=== PATIENT | female | born 1980 | race Caucasian/White ===

== ENCOUNTER 2017-06-25 21:04 | Emergency (ER) | payer BC ==
[~2017-06-25] VITALS: Ht 149.8 cm; Wt 79.4 kg
--- NOTE | ~2017-06-25 | EKG ---
[place], [place] ELECTROCARDIOGRAM REPORT NAME: TOSHA WRIGHT UNIT #: [id number] ROOM: DOCTOR: LEOLA KNIGHT MD BIRTHDATE: [birth year] DOS: 06/25/2017 TIME: 2203 hours. Normal sinus rhythm at 88 beats per minute. The tracing is normal. When compared with an ECG done about an hour earlier, heart rate has decreased significantly. LEOLA KNIGHT MD CM:EKGRPT:ELECTROCARDIOGRAM REPORT [id number] LEOLA KNIGHT MD
--- NOTE | ~2017-06-25 | EKG ---
[place], [place] ELECTROCARDIOGRAM REPORT NAME: TOSHA WRIGHT UNIT #: [id number] ROOM: DOCTOR: LEOLA KNIGHT MD BIRTHDATE: [birth year] DOS: 06/25/2017 TIME: 2302 hours. Normal sinus rhythm at 85 beats per minute. The tracing is normal. No previous tracing is available for comparison. LEOLA KNIGHT MD CM:EKGRPT:ELECTROCARDIOGRAM REPORT [phone] LEOLA KNIGHT MD
--- NOTE | ~2017-06-25 | EKG ---
[place], [place] ELECTROCARDIOGRAM REPORT NAME: TOSHA WRIGHT UNIT #: [id number] ROOM: DOCTOR: LEOLA KNIGHT MD BIRTHDATE: [birth year] DOS: 06/25/2017 TIME: 2115 hours. Sinus tachycardia at 114 beats per minute. The tracing is otherwise normal. No previous tracing is available for comparison. LEOLA KNIGHT MD CM:EKGRPT:ELECTROCARDIOGRAM REPORT 1145 [id number] LEOLA KNIGHT MD
[~2017-06-25 21:04] MED LIST: AMOXICILLIN500 MG PO; DIFLUCAN150 MG PO
[2017-06-25] MEDS ORDERED: LISINOPRIL5 MG PO (21:17)
[2017-06-25 21:28] LABS: BASO % 0.3 % (0.0-1.0); EOS # 0.1 10*3/uL (0.0-0.4); HEMATOCRIT 37.3 % (37.0-47.0); HEMOGLOBIN 11.3 g/dl (12.0-16.0); LYMPH # 2.6 10*3/uL (1.3-4.4); MEAN CELL VOLUME 76.7 fl (81.0-99.0); MEAN CORPUSCULAR HGB 23.3 pg (27.0-31.0); MEAN CORPUSCULAR HGB CONC 30.3 g/dl (33.0-37.0); MEAN PLATELET VOLUME 9.8 fl (9.6-12.3); MONO # 0.7 10*3/uL (0.1-1.0); MONO % 7.2 % (3.0-9.0); NEUT # 5.8 10*3/uL (2.3-7.9); NEUT % 63.2 % (47.0-73.0); PLATELET COUNT AUTOMATED 343 10*3/uL (130-400); RED BLOOD COUNT 4.86 10*6/uL (4.10-5.10); RED CELL DISTRI WIDTH 15.4 % (0-14.5); WHITE BLOOD COUNT 9.2 10*3/uL (4.8-10.8)
[2017-06-25 21:36] LABS: BILIRUBIN NEGATIVE (NEGATIVE); BLOOD NEGATIVE (NEGATIVE); CLARITY CLEAR (CLEAR); COLOR YELLOW (YELLOW); GLUCOSE NEGATIVE (NEGATIVE); KETONE NEGATIVE (NEGATIVE); LEUKO ESTERASE NEGATIVE (NEGATIVE); NITRITE NEGATIVE (NEGATIVE); SPECIFIC GRAVITY <= 1.005 (1.005-1.030); UROBILINOGEN 0.2 E.U./dl (0.2-1.0)
[2017-06-25 21:45] LABS: ALBUMIN 3.9 gm/dl (3.1-4.5); ALKALINE PHOSPHATASE 89 U/L (45-117); BUN 8 mg/dl (7-24); CHLORIDE 104 mmol/L (98-107); CREATININE 0.86 mg/dL (0.55-1.02); MAGNESIUM 2.2 mg/dL (1.5-2.1); POTASSIUM 3.8 mmol/L (3.5-5.1); SGOT/AST 18 IU/L (3-35); SGPT/ALT 34 U/L (12-78); SODIUM 140 mmol/L (136-145); TOTAL PROTEIN 7.8 gm/dL (6.4-8.2)
[2017-06-25 21:47] LABS: ACT PARTIAL THROMBO TIME 20.9 SECONDS (20.8-31.5)
[2017-06-25 21:48] LABS: TROPONIN I < 0.015 ng/ml (<0.045)
[2017-06-25 21:54] LABS: BACTERIA TRACE; RBC 0-2 rbc/hpf (0-2); WBC 0-2 wbc/hpf (0-5)
== END 2017-06-25 23:34 | disposition home or self-care (01) ==
LOC: ED 21:04
PROVIDERS: Emergency Medicine Emergency Medical Services
DX: R07.89 Other chest pain (principal); R73.9 Hyperglycemia, unspecified; Z98.890 Other specified postprocedural states; Z79.899 Other long term (current) drug therapy

== ENCOUNTER 2017-08-06 18:57 | Emergency (ER) | payer BC ==
[~2017-08-06] VITALS: Ht 149.8 cm; Wt 77.1 kg
--- NOTE | ~2017-08-06 | EKG ---
[place], [place] ELECTROCARDIOGRAM REPORT NAME: OTSHA WRIGHT UNIT #: [id number] ROOM: DOCTOR: ALEJANDRO MCDONOUGH,LUCIANO BIRTHDATE: [birth year] DOS: 08/06/2017 TIME: 2028 hours. IMPRESSION: 1. Sinus rhythm. 2. Normal QT interval. 3. No ischemic changes. LUCIANO ALLEN MD CM:EKGRPT:ELECTROCARDIOGRAM REPORT [id number] LUCIANO ALLEN MD
[~2017-08-06 18:57] MED LIST changes: +LISINOPRIL5 MG PO
[2017-08-06 20:15] LABS: BASO % 0.4 % (0.0-1.0); EOS # 0.1 10*3/uL (0.0-0.4); HEMOGLOBIN 11.3 g/dl (12.0-16.0); LYMPH # 2.6 10*3/uL (1.3-4.4); LYMPH % 24.9 % (27.0-41.0); MEAN CELL VOLUME 75.5 fl (81.0-99.0); MEAN CORPUSCULAR HGB 23.7 pg (27.0-31.0); MEAN CORPUSCULAR HGB CONC 31.4 g/dl (33.0-37.0); MEAN PLATELET VOLUME 9.9 fl (9.6-12.3); MONO # 0.6 10*3/uL (0.1-1.0); MONO % 6.1 % (3.0-9.0); NEUT # 6.9 10*3/uL (2.3-7.9); NEUT % 67.2 % (47.0-73.0); PLATELET COUNT AUTOMATED 334 10*3/uL (130-400); RED BLOOD COUNT 4.77 10*6/uL (4.10-5.10); RED CELL DISTRI WIDTH 15.6 % (0-14.5); WHITE BLOOD COUNT 10.3 10*3/uL (4.8-10.8)
[2017-08-06 20:30] LABS: ALBUMIN 3.5 gm/dl (3.1-4.5); ALKALINE PHOSPHATASE 88 U/L (45-117); BUN 8 mg/dl (7-24); CHLORIDE 106 mmol/L (98-107); CREATININE 0.78 mg/dL (0.55-1.02); LIPASE 357 U/L (73-393); POTASSIUM 3.9 mmol/L (3.5-5.1); SGOT/AST 13 IU/L (3-35); SGPT/ALT 19 U/L (12-78); SODIUM 139 mmol/L (136-145); TOTAL PROTEIN 7.7 gm/dL (6.4-8.2)
[2017-08-06 20:31] LABS: TROPONIN I < 0.015 ng/ml (<0.045)
[2017-08-06] MEDS ORDERED: AUGMENTIN 875875 MG PO (21:27)
[2017-08-09] MEDS ORDERED: METFORMIN ER500 MG PO (08:42)
[2017-08-09] MEDS ORDERED: VENLAFAXINE75 M1 PO (08:43)
[2017-08-09] MEDS ORDERED: Lopressor25 MG PO (08:43)
== END 2017-08-06 21:38 | disposition home or self-care (01) ==
LOC: ED 18:57
PROVIDERS: Nurse Practitioner Family
DX: H65.93 Unspecified nonsuppurative otitis media, bilateral (principal); R73.9 Hyperglycemia, unspecified; Z79.899 Other long term (current) drug therapy

== ENCOUNTER → 2017-08-09 | Outpatient (CLI) | payer BC ==
[~2017-08-09] MED LIST changes: +AUGMENTIN 875875 MG PO; +Lopressor25 MG PO; +METFORMIN ER500 MG PO; +VENLAFAXINE75 M1 PO
--- NOTE | ~2017-08-09 | ST ---
[place], [place] EXERCISE STRESS TEST REPORT NAME: TOSHA WRIGHT [facility] #: [id number] UNIT #: [id number] ROOM: DOCTOR: CHARLI RICHEY MD BIRTHDATE: [birth year] DOS: 08/09/2017 INDICATION: Chest pain. PROCEDURE: The patient was exercised on a treadmill using Jarrell protocol. The patient exercised for 8 minutes reaching 90% of her maximum predicted heart rate. Test was terminated due to achieving target heart rate and fatigue. No complaint of chest pain, chest pressure, heaviness or tightness. BLOOD PRESSURE RESPONSE: The resting blood pressure 122/82 with ending blood pressure 170/84. ELECTROCARDIOGRAM INTERPRETATION: The resting electrocardiogram showing normal sinus rhythm with poor R progression. At the peak of exercise, there was no evidence of any significant ST or T-wave changes suggestive of myocardial ischemia. No arrhythmias were noted. SUMMARY: 1. Adequate stress test with good functional capacity. 2. Negative treadmill stress test for stress-induced myocardial ischemia. 3. No arrhythmias were noted. 4. Normal blood pressure at rest with normal blood pressure response to exercise. 5. No nuclear images were requested. CHARLI RICHEY MD CM:STRESS:EXERCISE STRESS TEST REPORT [id number] CHARLI RICHEY MD
--- NOTE | 2017-08-09 10:11 | NUR ---
INFORMED SIGNED CONSENT OBTAINED FOR STANDARD GXT WITH DR RICHEY. RESTING EKG NSR HR 82 BP 122/82 IN SUPINE POSITION, STANDING HR 79 BP 118/78. PT COMPELTED 8:02 OF A EZEKIEL PROTOCOL WITH PT COMPLETING 2:02 OF STAGE III. PT REACHED A PEAK HR OF 165 WHICH REPRESENT 90% OF PREDICTED MAXIMUM AND A PEAK BP OF 170/84. TEST TERMINATED DUE TO FATIGUE AND SOB. NO ARRHYTHMIAS NOTED. NON DIAGNOSTIC ST CHANGES. LAST RECOVERY HR OF 140 BP 144/78. PT IN STABLE CONDITION, HOME WITH .
== END | disposition home or self-care (01) ==
LOC: CARD 01:05
DX: I08.1 Rheumatic disorders of both mitral and tricuspid valves (principal); L97.522 Non-pressure chronic ulcer of other part of left foot with fat layer exposed; M14.672 Charcot's joint, left ankle and foot; I10 Essential (primary) hypertension; Z86.73 Personal history of transient ischemic attack (TIA), and cerebral infarction without residual deficits

== ENCOUNTER 2020-09-17 21:08 | Emergency (ER) | payer BC ==
[~2020-09-17] VITALS: Ht 152.4 cm; Wt 86.2 kg
[2020-09-17 22:11] LABS: BASO # 0.1 10*3/uL (0.0-0.1); BASO % 0.6 % (0.0-1.0); EOS # 0.1 10*3/uL (0.0-0.4); EOS % 0.7 % (1.0-4.0); LYMPH # 1.9 10*3/uL (1.3-4.4); LYMPH % 21.4 % (27.0-41.0); MEAN CELL VOLUME 72.2 fl (81.0-99.0); MEAN CORPUSCULAR HGB 20.8 pg (27.0-31.0); MEAN CORPUSCULAR HGB CONC 28.8 g/dl (33.0-37.0); MEAN PLATELET VOLUME 9.3 fl (9.6-12.3); MONO # 0.6 10*3/uL (0.1-1.0); MONO % 6.9 % (3.0-9.0); NEUT # 6.3 10*3/uL (2.3-7.9); NEUT % 70.1 % (47.0-73.0); PLATELET COUNT AUTOMATED 364 10*3/uL (130-400); RED BLOOD COUNT 4.71 10*6/uL (4.10-5.10); RED CELL DISTRI WIDTH 16.3 % (0-14.5)
[2020-09-17 22:29] LABS: ALBUMIN 3.3 gm/dl (3.1-4.5); ALKALINE PHOSPHATASE 82 U/L (45-117); BUN 8 mg/dl (7-24); CHLORIDE 109 mmol/L (98-107); POTASSIUM 3.8 mmol/L (3.5-5.1); SGOT/AST 10 IU/L (3-35); SGPT/ALT 25 U/L (12-78); SODIUM 141 mmol/L (136-145); TOTAL PROTEIN 7.2 gm/dL (6.4-8.2)
[2020-09-17 22:30] LABS: TROPONIN I < 0.015 ng/ml (<0.045)
== END 2020-09-18 01:34 | disposition home or self-care (01) ==
LOC: ED 21:08
PROVIDERS: Emergency Medicine
DX: R00.0 Tachycardia, unspecified (principal); R79.1 Abnormal coagulation profile; Z79.899 Other long term (current) drug therapy

== ENCOUNTER 2025-02-09 07:11 | Emergency (ER) | payer BC ==
[~2025-02-09] VITALS: Ht 157.4 cm; Wt 72.6 kg
[2025-02-09] MEDS ORDERED: Metoclopramide Hydrochloride 10 MG/2 ML VIAL IV ONE (07:25)
[2025-02-09] MEDS ORDERED: Ketorolac Tromethamine 15 MG/ML VIAL IV ONE (07:25)
[2025-02-09] MEDS ORDERED: diphenhydrAMINE hydrochloride 50 MG/ML VIAL IV ONE (07:25)
[2025-02-09] MEDS ORDERED: SODIUM CHLORIDE 0.9% 1,000 ML IV ONE (07:25)
[2025-02-09 07:40] LABS: BASO % 0.2 % (0.0-1.0); EOS % 0.1 % (1.0-4.0); HEMATOCRIT 33.6 % (37.0-47.0); MEAN CELL VOLUME 72.9 fl (81.0-99.0); MEAN CORPUSCULAR HGB 22.3 pg (27.0-31.0); MEAN CORPUSCULAR HGB CONC 30.7 g/dl (33.0-37.0); MEAN PLATELET VOLUME 9.4 fl (9.6-12.3); MONO # 0.9 10*3/uL (0.1-1.0); NEUT # 14.4 10*3/uL (2.3-7.9); NEUT % 83.7 % (47.0-73.0); PLATELET COUNT AUTOMATED 420 10*3/uL (130-400); RED BLOOD COUNT 4.61 10*6/uL (4.10-5.10); RED CELL DISTRI WIDTH 14.6 % (0-14.5); WHITE BLOOD COUNT 17.2 10*3/uL (4.8-10.8)
[2025-02-09 08:03] LABS: BUN 6 mg/dl (9-23); CHLORIDE 102 mmol/L (98-107)
[2025-02-09] MEDS ORDERED: PERCOCET 5-3251 EACH PO (08:42)
[2025-02-09] MEDS ORDERED: Ondansetron4 MG PO (08:42)
[2025-02-09] MEDS ORDERED: CIPRO500 MG PO (08:42)
== END 2025-02-09 08:46 | disposition home or self-care (01) ==
LOC: ED 07:11
PROVIDERS: Emergency Medicine
DX: K80.20 Calculus of gallbladder without cholecystitis without obstruction (principal); R10.11 Right upper quadrant pain; F32.A Depression, unspecified; Z79.899 Other long term (current) drug therapy